=== PATIENT | male | born 1990 | race Caucasian/White ===

== ENCOUNTER 2017-08-27 03:06 | Emergency (ER) | payer OTHER ==
[~2017-08-27] VITALS: Ht 188 cm; Wt 90.7 kg
[~2017-08-27 03:06] MED LIST: ASPIRIN EC325 MG PO; BENADRYL25 MG PO; CORTISONE14 GM TP; HYDROXYZINE HCL25 MG PO; IBUPROFEN400 MG PO; NICORETTE4 M1 BUCCAL; NORCO 5-325 TA1 EACH PO; PREDNISONE20 MG PO
[2017-08-27] MEDS ORDERED: CYCLOBENZAPRINE10 MG PO (03:33)
[2017-08-27] MEDS ORDERED: DICLOFENAC SODI75 MG PO (03:33)
== END 2017-08-27 03:52 | disposition home or self-care (01) ==
LOC: ED 03:06
DX: M54.5 Low back pain (principal); F17.200 Nicotine dependence, unspecified, uncomplicated; Z88.1 Allergy status to other antibiotic agents; Z88.0 Allergy status to penicillin; X50.9XXA Other and unspecified overexertion or strenuous movements or postures, initial encounter
CPT/HCPCS: 99283

== ENCOUNTER → 2019-12-01 | Emergency (ER) | payer SELFPAY ==
[~2019-12-01] VITALS: Ht 188 cm; Wt 90.7 kg
[~2019-12-01] MED LIST changes: +CYCLOBENZAPRINE10 MG PO; +DICLOFENAC SODI75 MG PO
== END ==
LOC: ED 13:36
DX: R56.9 Unspecified convulsions (principal); F17.200 Nicotine dependence, unspecified, uncomplicated; Z88.1 Allergy status to other antibiotic agents; Z88.0 Allergy status to penicillin
CPT/HCPCS: 70450; 99284-25

== ENCOUNTER 2024-09-20 14:14 | Emergency (ER) | payer OTHER ==
[~2024-09-20] VITALS: Ht 188 cm; Wt 101.2 kg
[2024-09-20 14:37] LABS: BASOPHILS 0.7 % (0-2); HEMATOCRIT 46.4 % (35.0-50.0); HEMOGLOBIN 16.4 g/dL (12.0-18.0); LYMPHOCYTES 24.7 % (24-44); MCH 30.7 (27-36); MCHC 35.4 g/dl (30-36); MCV 86.8 fl (81-99); NEUTROPHILS 66.6 % (39-80); PLATELET COUNT 254 K/uL (140-440); RBC 5.34 M/ul (4.3-5.7); RDW 12.8 (10.5-15.0)
[2024-09-20 14:55] LABS: ALBUMIN 4.1 g/dL (3.4-5.0); ALBUMIN/GLOBULIN RATIO 1.21 (1.1-2.4); ANION GAP 11.7 (7-21); BILIRUBIN, TOTAL 0.5 mg/dL (0.2-1.0); BUN/CREATININE RATIO 18.91 (6.0-28.6); CALCIUM 9.4 mg/dL (8.5-10.1); CREATININE, SERUM 0.74 mg/dL (0.70-1.30); MAGNESIUM 1.8 mg/dL (1.8-2.4); POTASSIUM 3.7 mmol/L (3.5-5.1); PROTEIN, TOTAL 7.5 g/dL (6.4-8.2)
[2024-09-20 15:26] VITALS: BP 115/84
--- NOTE | 2024-09-20 21:18 | EKG ---
[facility] [address] [facility] [place] [address] Signed Normal sinus rhythm Normal ECG When compared with ECG of 27-JUL-2016 13:07, No significant change was found Confirmed by Nadia Chowdhury MD () on 09/20/2024 9:18:12 PM Electronically Signed By: NADIA CHOWDHURY MD 09/20/24 2118 PATIENT NAME: MANPREET PEREZ III Electrocardiogram DATE OF : 88 PHYSICIAN: NADIA CHOWDHURY MD REPORT #: [id number] REPORT IS CONFIDENTIAL AND NOT TO BE RELEASED WITHOUT AUTHORIZATION
== END 2024-09-20 15:26 | disposition home or self-care (01) ==
LOC: ED 14:14
PROVIDERS: Emergency Medicine
DX: R55 Syncope and collapse (principal); F17.200 Nicotine dependence, unspecified, uncomplicated; Z88.1 Allergy status to other antibiotic agents; Z88.0 Allergy status to penicillin
CPT/HCPCS: 36415; 71045; 80053; 80307; 83735; 84484; 85025; 93005; 93010; 99284-25; G0480